=== PATIENT | male | born 1975 | race American Indian/Alaskan Native ===

== ENCOUNTER 2017-04-29 16:43 | Emergency (ER) | payer BC ==
[2017-04-29 17:59] LABS: Alanine Aminotransferase 33 units/L (7-56); Albumin 4.6 g/dL (3.9-5); Albumin/Globulin Ratio 1.6 %; Alkaline Phosphatase 60 units/L (35-129); Anion Gap 17 mmol/L; Blood Urea Nitrogen 12 mg/dL (9-20); Calcium 9.7 mg/dL (8.4-10.2); Carbon Dioxide 27 mmol/L (22-30); Chloride 103.1 mmol/L (98-107); Glucose 90 mg/dL (75-100); Lipase 25 units/L (13-60); Potassium 4.5 mmol/L (3.6-5.0); Sodium 143 mmol/L (137-145); Total Protein 7.5 g/dL (6.3-8.2)
[2017-04-29 18:08] LABS: Basophils % (Auto) 0.8 % (0.0-1.8); Hematocrit 42.7 % (35.5-45.6); Hemoglobin 14.3 gm/dl (11.8-15.2); Mean Corpuscular HGB Conc 33 % (32-34); Mean Corpuscular Hemoglobin 29 pg (28-32); Mean Corpuscular Volume 86 fl (84-94); Platelet Count 265 K/mm3 (140-440); Red Blood Count 4.97 M/mm3 (3.65-5.03); Red Cell Distribution Width 13.3 % (13.2-15.2); White Blood Count 9.6 K/mm3 (4.5-11.0)
[2017-04-29 19:17] LABS: Bilirubin,Urine NEG (Negative); Blood,Urine NEG (Negative); Ketones,Urine NEG (Negative); Leukocyte Esterase,Urine NEG (Negative); Mucus,Urine FEW /HPF; Nitrite,Urine NEG (Negative); Protein,Urine <15 mg/dL mg/dL (Negative); Urobilinogen,Urine < 2.0 mg/dL (<2.0); WBC,Urine < 1.0 /HPF (0.0-6.0)
--- NOTE | 2017-04-29 22:59 | Emergency Department Report ---
HPI - General Chief Complaint: Abdominal Pain Time Seen by Provider: 04/29/17 22:10 - HPI HPI: This is a 42-year-old -[place] male presents to the emergency department with complaint of some pain towards the right groin where he has a known inguinal hernia but feels like he cannot reduce it. This is been going on for the past 5 years but usually he says he is able to push it back in. He denies any problems with bowel or bladder. He has not taken anything for his symptoms prior to presentation. He denies any other past medical history. He does not have a primary care physician. No recent travel or sick contacts at home. ED Past Medical Hx - Past Medical History Additional medical history: inguinal hernia - Surgical History Past Surgical History?: No - Social History Smoking Status: Never Smoker Substance Use Type: None - Medications Home Medications: Home Medications Medication Instructions Recorded Confirmed Last Taken Type HYDROcodone/APAP 5-325 [[place] 1 each PO Q6HR PRN #8 tablet 04/30/17 Unknown Rx 5/325] ED Review of Systems ROS: Stated complaint: ABDOMINAL PAIN Other details as noted in HPI Comment: All other systems reviewed and negative Constitutional: denies: chills, fever Eyes: denies: eye pain, eye discharge, vision change ENT: denies: ear pain, throat pain Respiratory: denies: cough, shortness of breath, wheezing Cardiovascular: denies: chest pain, palpitations Gastrointestinal: denies: abdominal pain, nausea, diarrhea Genitourinary: other (right inguinal pain). denies: dysuria, discharge Musculoskeletal: denies: back pain, joint swelling, arthralgia Skin: denies: rash, lesions Neurological: denies: headache, weakness, paresthesias Physical Exam - Physical Exam Vital Signs: Vital Signs 04/29/17 17:02 Temperature 98.4 F Pulse Rate 75 Respiratory 16 Rate Blood Pressure 114/80 O2 Sat by Pulse 99 Oximetry Physical Exam: GENERAL: The patient is well-developed well-nourished. HENT: Normocephalic. Atraumatic. Patient has moist mucous membranes. EYES: Extraocular motions are intact. Pupils equal reactive to light bilaterally. NECK: Supple. Trachea is midline. CHEST/LUNGS: Clear to auscultation. There is no respiratory distress noted. HEART/CARDIOVASCULAR: Regular. There is no tachycardia. There is no gallop rub or murmur. ABDOMEN: Abdomen is soft, nontender. Patient has normal bowel sounds. There is no abdominal distention. SKIN: Skin is warm and dry. NEURO: The patient is awake, alert, and oriented. The patient is cooperative. The patient has no focal neurologic deficits. The patient has normal speech. MUSCULOSKELETAL: There is no tenderness or deformity. There is no limitation range of motion. There is no evidence of acute injury. : Normal-appearing penis and scrotum/testicles. There is no tenderness to palpation to the penis or testicles. There is a small amount of swelling to the right inguinal region but it appears reducible but is slightly tender to palpation. ED Course Vital Signs 04/29/17 17:02 Temperature 98.4 F Pulse Rate 75 Respiratory 16 Rate Blood Pressure 114/80 O2 Sat by Pulse 99 Oximetry ED Medical Decision Making - Lab Data Result diagrams: 04/29/17 17:21 04/29/17 17:21 - Radiology Data Radiology results: report reviewed CT abdomen and pelvis with contrast. TECHNIQUE: Computerized axial tomography of the abdomen and pelvis was performed after the IV injection of iodinated nonionic contrast. HISTORY: Abdominal pain, inguinal hernia. COMPARISON: No prior studies are available for comparison. FINDINGS: The lung bases are clear. There are no pleural effusions. The heart size is normal. The liver, spleen and pancreas appear normal. There may be a very tiny cyst in the right lobe of the liver. The gallbladder is contracted. The adrenal glands are not enlarged. Both kidneys appear normal in size and configuration. The abdominal aorta has a normal caliber. There is no retroperitoneal adenopathy. A normal appendix is visible. The unopacified gastrointestinal tract is unremarkable. The bladder, seminal vesicles and prostate appear normal. There is a moderate sized right inguinal canal hernia containing fat. The regional skeleton appears intact. IMPRESSION: Right inguinal canal hernia containing fat. Probable tiny hepatic cyst. No evidence of acute disease in the abdomen or pelvis. - Medical Decision Making 42-year-old male presents with some pain and swelling to the right groin that he says is a hernia. He says that it is not reducible but when I palpate the area does appear to reduce and holding it down appears to decrease his discomfort. Labs are unremarkable including no leukocytosis. He has no trouble with urination, bowel movements and his abdomen is soft. A CT was done that shows that there is a large defect in the right inguinal canal but it is fat filled and there is no bowel and no acute abdominal or pelvic process. He will be given a dose of pain medication. He will be given a referral for general surgery as he should establish care for possible outpatient surgical intervention for this acute on chronic condition. He will return to the ER with any worsening of his symptoms or any acute distress. Vital signs stable throughout his ED course. - Differential Diagnosis hernia, appendicitis, torsion Critical Care Time: No Critical care attestation.: If time is entered above; I have spent that time in minutes in the direct care of this critically ill patient, excluding procedure time. ED Disposition Clinical Impression: Inguinal hernia, right Disposition: DC-01 TO HOME OR SELFCARE Is pt being admited?: No Condition: Stable Instructions: Inguinal Hernia (ED) Additional Instructions: Please follow up with a primary care physician in the next few days. I've given you a referral for a local surgeon so that you can follow up and establish care regarding your chronic hernia. Return to the emergency Department with any worsening of your symptoms or any acute distress. You have been prescribed a medication that is sedating and therefore should not be taken prior to driving, working, and responsible for children and in no way should be mixed with alcohol of any quantity. Prescriptions: HYDROcodone/APAP 5-325 [[place] 5/325] 1 each PO Q6HR PRN #8 tablet PRN Reason: Pain Referrals: NINA WEBSTER MD [Staff Physician] - 3-5 Days PRIMARY CARE, [Primary Care Provider] - 3-5 Days Time of Disposition: 00:23
[2017-04-29] MEDS ORDERED: MORPHINE IV ONE (23:25)
--- NOTE | 2017-04-29 23:38 | Cat Scan Report ---
FINAL REPORT PROCEDURE: CT abdomen and pelvis with contrast. TECHNIQUE: Computerized axial tomography of the abdomen and pelvis was performed after the IV injection of iodinated nonionic contrast. HISTORY: Abdominal pain, inguinal hernia. COMPARISON: No prior studies are available for comparison. FINDINGS: The lung bases are clear. There are no pleural effusions. The heart size is normal. The liver, spleen and pancreas appear normal. There may be a very tiny cyst in the right lobe of the liver. The gallbladder is contracted. The adrenal glands are not enlarged. Both kidneys appear normal in size and configuration. The abdominal aorta has a normal caliber. There is no retroperitoneal adenopathy. A normal appendix is visible. The unopacified gastrointestinal tract is unremarkable. The bladder, seminal vesicles and prostate appear normal. There is a moderate sized right inguinal canal hernia containing fat. The regional skeleton appears intact. IMPRESSION: Right inguinal canal hernia containing fat. Probable tiny hepatic cyst. No evidence of acute disease in the abdomen or pelvis.
[2017-04-30 00:12] VITALS: BP 121/81
== END 2017-04-30 00:25 | disposition home or self-care (01) ==
LOC: ED 16:43
DX: K40.90 Unilateral inguinal hernia, without obstruction or gangrene, not specified as recurrent (principal)
CPT/HCPCS: 36415; 74177; 80053; 81001; 83690; 85025; 96374; 99284; J2270; Q9967

== ENCOUNTER 2018-04-02 14:22 | Emergency (ER) | payer BC ==
[2018-04-02 15:18] LABS: Bilirubin,Urine NEG (Negative); Blood,Urine NEG (Negative); Color,Urine Yellow (Yellow); Mucus,Urine 2+ /HPF; Protein,Urine <15 mg/dL mg/dL (Negative)
[2018-04-02 15:24] LABS: Hematocrit 44.6 % (35.5-45.6); Hemoglobin 15.8 gm/dl (11.8-15.2); Mean Corpuscular HGB Conc 36 % (32-34); Mean Corpuscular Hemoglobin 30 pg (28-32); Mean Corpuscular Volume 85 fl (84-94); Platelet Count 284 K/mm3 (140-440); Red Blood Count 5.23 M/mm3 (3.65-5.03)
[2018-04-02 15:49] LABS: Alanine Aminotransferase 36 units/L (7-56); Albumin 4.5 g/dL (3.9-5); BUN/Creatinine Ratio 7; Blood Urea Nitrogen 7 mg/dL (9-20); Calcium 9.5 mg/dL (8.4-10.2); Hemolysis Index 12
[2018-04-02] MEDS ORDERED: DILAUDID IV ONE (17:40)
[2018-04-02] MEDS ORDERED: ZOFRAN IV ONE (17:40)
--- NOTE | 2018-04-02 17:46 | Emergency Department Report ---
ED Abdominal Pain HPI - General Chief Complaint: Abdominal Pain Stated Complaint: LOWER STOMACH/RT LEG PAIN Time Seen by Provider: 04/02/18 17:26 Source: patient Mode of arrival: Ambulatory Limitations: No Limitations - History of Present Illness Initial Comments: 42-year-old male with a past medical history of right inguinal hernia 1.5 years presents to the hospital with a reducible right hernia for the past 4 days. Patient last had his hernia evaluated by surgery while he was in [place]. Up into the last 4 days patient was able to easily self reduce his hernia. Once he reduces the hernia it usually stays in for quite sometime. However, now for the past 4 days he had consistent pain to the right groin and has been unable to reduce the hernia. He also states that he's been having intermittent right-sided leg numbness during this period causing his leg to give out at times. He complains of nausea without vomiting. He has not had a bowel movement in 7 days but he is passing gas. He does report good appetite and no fever. - Related Data Previous Rx's Medication Instructions Recorded Last Taken Type HYDROcodone/APAP 5-325 [[place] 1 each PO Q6HR PRN #8 tablet 04/30/17 Unknown Rx 5/325] Docusate Sodium [Colace] 100 mg PO BID PRN #20 capsule 04/02/18 Unknown Rx Ibuprofen [Motrin] 800 mg PO Q8HR PRN #30 tablet 04/02/18 Unknown Rx Polyethylene Glycol 3350 [Miralax 17 gm PO QDAY #2 packet 04/02/18 Unknown Rx 3350] Allergies Allergy/AdvReac Type Severity Reaction Status Date / Time Sulfa (Sulfonamide Allergy Hives Verified 04/29/17 17:02 Antibiotics) ED Review of Systems ROS: Stated complaint: LOWER STOMACH/RT LEG PAIN Other details as noted in HPI Comment: All other systems reviewed and negative ED Past Medical Hx - Past Medical History Additional medical history: inguinal hernia - Social History Smoking Status: Never Smoker Substance Use Type: None - Medications Home Medications: Home Medications Medication Instructions Recorded Confirmed Last Taken Type HYDROcodone/APAP 5-325 [[place] 1 each PO Q6HR PRN #8 tablet 04/30/17 Unknown Rx 5/325] Docusate Sodium [Colace] 100 mg PO BID PRN #20 capsule 04/02/18 Unknown Rx Ibuprofen [Motrin] 800 mg PO Q8HR PRN #30 tablet 04/02/18 Unknown Rx Polyethylene Glycol 3350 [Miralax 17 gm PO QDAY #2 packet 04/02/18 Unknown Rx 3350] ED Physical Exam - General Limitations: No Limitations - Other Other exam information: General: No limitations, patient is alert in no acute distress Head exam: Atraumatic, normocephalic Eyes exam: Normal appearance, pupils equal reactive to light, extraocular movements intact ENT: Moist mucous membrane Neck exam: Normal inspection, full range of motion, no meningismus nontender Respiratory exam: Clear to auscultation bilateral, no wheezes, rales, crackles Cardiovascular: Normal rate and rhythm, normal heart sounds Abdomen: Soft, nondistended, right inguinal hernia that is tender to palpation. No testicular pain or swelling. Extremity: Full range of motion normal inspection no deformity Back: Normal Inspection, full range of motion, no tenderness Neurologic: Alert, oriented x3, cranial nerves intact, no motor or sensory deficit. 5/5 leg strength Psychiatric: normal affect, normal mood Skin: Warm, dry, intact ED Course Vital Signs 04/02/18 04/02/18 04/02/18 14:29 17:50 17:59 Temperature 98.5 F Pulse Rate 87 88 Respiratory 18 16 16 Rate Blood Pressure 122/78 Blood Pressure 124/89 [Left] O2 Sat by Pulse 98 97 Oximetry 04/02/18 18:07 Temperature Pulse Rate Respiratory 16 Rate Blood Pressure Blood Pressure [Left] O2 Sat by Pulse 99 Oximetry - Reevaluation(s) Reevaluation #1: 04/02/18 18:22 pt medicated with Dilaudid and zofran. placed in supine Trendelenburg position. Stool study pressure held to right inguinal area was positive reduction of a hernia. Once patient is sat up in bed the hernia returns but is reducible a second time. 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 ED Medical Decision Making - Lab Data Result diagrams: 04/02/18 15:12 04/02/18 15:12 - Radiology Data Radiology results: report reviewed FINAL REPORT PROCEDURE: CT abdomen and pelvis without contrast. TECHNIQUE: Computerized axial tomography of the abdomen and pelvis was performed without intravenous contrast. This study is performed without intravascular contrast material and its sensitivity for abdominal and pelvic pathology, including neoplasms, inflammation, abscess, free fluid, thrombosis, arterial dissection and infarction, is reduced compared with a contrast enhanced study. HISTORY: PAIN/SWELLIG/RT INGUINAL HERNIA FOR INCARCERATION COMPARISON: CT abdomen and pelvis 04/29/2017. FINDINGS: The lung bases are clear. There are no pleural effusions. The heart size is normal. The liver, pancreas and spleen are grossly normal. The gallbladder is contracted. There is no biliary dilatation. The adrenal glands are not enlarged. Both kidneys appear normal in size and configuration. The abdominal aorta has a normal caliber. There is no retroperitoneal adenopathy. The gastrointestinal tract is unremarkable. A normal appendix is visible. The bladder, seminal vesicles and prostate appear normal. There is a moderately large right inguinal canal hernia containing fat. This appears similar in size to the previous study. The regional skeleton appears intact. IMPRESSION: Moderately large right inguinal canal hernia containing fat. Otherwise normal studies of the abdomen and pelvis. - Medical Decision Making right inguinal hernia contains fat only and unchanged compared to 04/2017 reducible f/u with surgery rec (see consult) miralax, colace prn constipation motrin prn pain - Differential Diagnosis incarcerated inguinal hernia, strangulated hernia Critical Care Time: No Critical care attestation.: If time is entered above; I have spent that time in minutes in the direct care of this critically ill patient, excluding procedure time. ED Disposition Clinical Impression: Reducible right inguinal hernia Disposition: DC-01 TO HOME OR SELFCARE Is pt being admited?: No Does the pt Need Aspirin: No Condition: Stable Instructions: Inguinal Hernia (ED) Additional Instructions: Take the medication as prescribed. Return if symptoms worsen as indicated by your discharge instructions. It is very important that you follow up with a surgeon to discuss surgical options for your hernia. Prescriptions: Docusate Sodium [Colace] 100 mg PO BID PRN #20 capsule PRN Reason: Constipation Ibuprofen [Motrin] 800 mg PO Q8HR PRN #30 tablet PRN Reason: Pain, Moderate (4-6) Polyethylene Glycol 3350 [Miralax 3350] 17 gm PO QDAY #2 packet Referrals: JACQUELINE FREDERICK DO [Staff Physician] - 04/07/18 (call office tomorrow (tuesday the ) to schedule f/u on tuesday) [facility] [Provider Group] - 7-10 days Forms: Work/School Release Form(ED) Time of Disposition: 18:47
--- NOTE | 2018-04-02 17:58 | Cat Scan Report ---
FINAL REPORT PROCEDURE: CT abdomen and pelvis without contrast. TECHNIQUE: Computerized axial tomography of the abdomen and pelvis was performed without intravenous contrast. This study is performed without intravascular contrast material and its sensitivity for abdominal and pelvic pathology, including neoplasms, inflammation, abscess, free fluid, thrombosis, arterial dissection and infarction, is reduced compared with a contrast enhanced study. HISTORY: PAIN/SWELLIG/RT INGUINAL HERNIA FOR INCARCERATION COMPARISON: CT abdomen and pelvis 04/29/2017. FINDINGS: The lung bases are clear. There are no pleural effusions. The heart size is normal. The liver, pancreas and spleen are grossly normal. The gallbladder is contracted. There is no biliary dilatation. The adrenal glands are not enlarged. Both kidneys appear normal in size and configuration. The abdominal aorta has a normal caliber. There is no retroperitoneal adenopathy. The gastrointestinal tract is unremarkable. A normal appendix is visible. The bladder, seminal vesicles and prostate appear normal. There is a moderately large right inguinal canal hernia containing fat. This appears similar in size to the previous study. The regional skeleton appears intact. IMPRESSION: Moderately large right inguinal canal hernia containing fat. Otherwise normal studies of the abdomen and pelvis.
[2018-04-02 18:03] VITALS: BP 124/89
[2018-04-02] MEDS ORDERED: K-DUR PO ONE (18:30)
== END 2018-04-02 19:10 | disposition home or self-care (01) ==
LOC: ED 14:22
DX: K40.90 Unilateral inguinal hernia, without obstruction or gangrene, not specified as recurrent (principal); Z88.2 Allergy status to sulfonamides; Z79.899 Other long term (current) drug therapy
CPT/HCPCS: 36415; 74176; 80053; 81001; 85027; 96374; 96375; 99284; J1170; J2405